=== PATIENT | female | born 1975 | race Caucasian/White ===

== ENCOUNTER 2020-03-18 08:14 | Outpatient (CLI) | payer BC, SELFPAY ==
--- NOTE | ~2020-03-18 | XR_ITS ---
EXAMINATION: XR ankle RT min 3V, XR foot RT min 3V EXAM DATE: 03/18/2020 08:36 INDICATION: Pain of the right foot, ankle. 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 Ini tial encounter. TECHNIQUE: Right foot dorsoplantar, lateral and oblique projections obtained and reviewed. Right ank le frontal, lateral and oblique projections obtained and reviewed. There is no prior study for ani pantoja. FINDINGS: Right metatarsal bones unremarkable. The right ankle mortise appears intact. 1st toe is u nremarkable. There are no acute fractures or dislocations identified. There is no subcutaneous gas. The soft tissue is unremarkable. There are no radiopaque foreign bodies. IMPRESSION: 1. Unremarkable right foot, ankle exam. Reviewed, dictated and finalized at location A. IMPRESSION: 1. Unremarkable right foot, ankle exam.
== END 2020-03-18 08:15 ==
PROVIDERS: PCP Physician Assistant; Visit Provider Physician Assistant
DX: M79.671 Pain in right foot (principal)
CPT/HCPCS: 73610; 73630

== ENCOUNTER 2020-06-29 06:48 | Outpatient (CLI) | payer BC, SELFPAY ==
--- NOTE | ~2020-06-29 | MR_ITS ---
EXAMINATION: MR ankle RT wo con DATE: 06/29/2020 07:42 INDICATION: Posterior right ankle pain TECHNIQUE: Magnetic resonance imaging (MRI) of the right ankle was performed without intravenous cont rast. Sequences included sagittal, coronal, and axial proton-density weighted fast spin echo without and with fat saturation. COMPARISON: None. FINDINGS: Medial ankle ligaments: Deep and superficial deltoid ligaments as well as the spring ligament are normal. Lateral ankle ligaments: The anterior and posterior inferior tibiofibular ligaments are normal. The anterior talofibular, calc aneofibular and posterior talofibular ligaments are normal. Tendons: Achilles tendon is normal. The peroneus longus and brevis tendons are normal. The tibialis anterior a nd extensor hallucis longus and extensor digitorum longus tendons are normal. The tibialis posterior, flexor digitorum longus and flexor hallucis longus tendons are normal. Plantar fascia: Plantar aponeurosis is normal. Bones/other: Bone alignment is normal. Normal marrow signal throughout with no fracture or pathologic marrow repla cing process. Joint spaces are normal with no erosions or joint effusions. Negligible increased fluid signal along the medial posterior margin of the distalmost Achilles tendon which is in relatively cl ose proximity to the marker indicating the site of maximal pain potentially related to minimal Achill es (subcutaneous calcaneal) bursitis. IMPRESSION: 1. Possible minimal Achilles (subcutaneous calcaneal) bursitis. Otherwise unremarkable MRI of the rig ht ankle and hindfoot with no other etiology identified for reported posterior ankle pain. Reviewed, dictated and finalized at location A. CLEANING HAND IMPRESSION: 1. Possible minimal Achilles (subcutaneous calcaneal) bursitis. Otherwise unrem arkable MRI of the right ankle and hindfoot with no other etiology identified f or reported posterior ankle pain.
== END 2020-06-29 06:49 ==
PROVIDERS: Visit Provider Podiatrist Foot & Ankle Surgery
DX: M25.571 Pain in right ankle and joints of right foot (principal); I10 Essential (primary) hypertension
CPT/HCPCS: 73721

== ENCOUNTER 2021-04-18 16:42 | Outpatient (CLI) | payer BC, SELFPAY ==
--- NOTE | ~2021-04-18 | US_ITS ---
EXAMINATION: US venous doppler [facility] DATE: 04/18/2021 17:15 INDICATION: Left calf pain. TECHNIQUE: Grayscale ultrasound images without and with compression and Doppler ultrasound images of the left lower extremity veins were obtained. COMPARISON: Ultrasound 02/22/2017 FINDINGS: The visualized portions of left common femoral vein, profunda (deep) femoral vein, femoral vein, popl iteal vein, peroneal veins, posterior tibial veins, and greater saphenous vein outflow are patent. IMPRESSION: 1. No deep venous thrombosis. Reviewed, dictated and finalized at location A.
== END 2021-04-18 16:43 | disposition home or self-care (01) ==
PROVIDERS: Visit Provider Podiatrist Foot & Ankle Surgery
DX: M79.89 Other specified soft tissue disorders (principal)
CPT/HCPCS: 93971

== ENCOUNTER 2021-07-20 10:29 | Emergency (ER) | payer BC, SELFPAY ==
--- NOTE | ~2021-07-20 | US_ITS ---
EXAMINATION: US venous doppler [facility] DATE: 07/20/2021 11:53 INDICATION: Left lower limb pain TECHNIQUE: Grayscale ultrasound images without and with compression and Doppler ultrasound images of the left lower extremity veins were obtained. COMPARISON: None. FINDINGS: The visualized portions of left common femoral vein, profunda (deep) femoral vein, femoral vein, popl iteal vein, peroneal veins, posterior tibial veins, gastrocnemius vein and greater saphenous vein out flow are patent. IMPRESSION: 1. No deep venous thrombosis in the left lower limb. Reviewed, dictated and finalized at location A. 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
[2021-07-20 10:36] VITALS: BP 122/76; PULSE 86; RESP 18; O2SAT 99
[2021-07-20 11:49] VITALS: TEMP 36.4
--- NOTE | 2021-07-20 11:53 | ECG_ITS ---
Measurements Intervals Ernest Rate: 67 P: 63 MN: 149 QRS: 43 QRSD: 87 T: 31 QT: 386 QTc: 409 Interpretive Statements SINUS RHYTHM BASELINE ARTIFACT- I, II, III, AVR, AVL, AVF BORDERLINE ECG Electronically Signed On 07-20-2021 13:10:06 [employer] by Nasim Booker D.O.
--- NOTE | 2021-07-20 12:09 | ED.EXTPRO ---
HPI - Extremity Problem General Chief complaint: Extremity Problem,Nontraumatic Stated complaint: heart racing Time Seen by Provider: 07/20/21 11:18 Source: patient and RN notes reviewed Mode of arrival: ambulatory Limitations: no limitations History of Present Illness HPI Narrative: Patient presents with pain in the medial side of left thigh, radiating down to the medial side of the left lower extremity started since she had venous ablation of the lower extremity May 2021 got worse over the last few days. Patient denies any trauma. Also denies any fever, chills, nausea, vomiting, shortness of breath or chest pain. Review of Systems Review of Systems: CONSTITUTIONAL: Denies fever, chills, or sweats. EYES: Denies visual changes, redness, or discharge. ENT: Denies rhinorrhea, congestion, sore throat, or otalgia. CARDIOVASCULAR: Denies chest pain, palpitations, or edema. RESPIRATORY: Denies cough or dyspnea. GASTROINTESTINAL: Denies abdominal pain, nausea, vomiting, or diarrhea. GENITOURINARY: Denies dysuria or hematuria. SKIN: Denies rash or itching. MUSCULOSKELETAL: Denies back pain, joint pain, or myalgia. NEUROLOGIC: Denies headache, numbness, or weakness. PSYCHIATRIC: Denies anxiety or depression. PMFSH Family History Family History Mother Hypertension Social History Social History Second hand tobacco smoke exposure: Yes Smoking end date: 08/19/09 Alcohol intake: current Exam Narrative: General appearance: Well-developed, well-nourished Skin: Normal color Head: Normocephalic, nontraumatic Eyes: Clear conjunctiva ENT: Oropharynx normal, ears normal, nose normal Neck: Supple, nontender Chest and respiratory: Airway patent, no respiratory distress, no accessory muscle use Heart: Regular rate/rhythm Abdomen: Soft, nontender, no organomegaly, quiet bowel sounds Vascular: Normal peripheral pulses, normal capillary refill. Musculoskeletal: Mild diffuse tenderness left thigh medially, no bruises, no swelling, no rash, at the same line of the venous ablation. No evelyn-like feeling under the skin. 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 Venous Doppler ordered. Imaging Data Radiologist's impression: Impressions Venous Doppler Study 07/20/21 12:00 IMPRESSION: 1. No deep venous thrombosis in the left lower limb. ECG Data EKG #1: Attestation EKG: I personally reviewed and interpreted this ECG as follows: ECG completion date: 07/20/21 ECG completion time: 12:31 Interpretation: Normal sinus rhythm at 67 bpm, normal EKG Critical Care Time Critical Care Time Critical Care Time: No Discharge Plan Discharge Clinical Impression: Left leg pain Patient Disposition: Home, Self-Care Condition: Stable Instructions: Antibiotic Form, Leg Pain (ED) Additional Instructions: Return if symptoms are worsening , call your fa
[2021-07-20 12:59] VITALS: BP 107/69; PULSE 63; RESP 18; TEMP 36.6; O2SAT 100
== END 2021-07-20 13:01 | disposition home or self-care (01) ==
PROVIDERS: Emergency Provider Emergency Medicine; PCP Physician Assistant
DX: M79.605 Pain in left leg (principal); Z77.22 Contact with and (suspected) exposure to environmental tobacco smoke (acute) (chronic)
CPT/HCPCS: 93005; 93971; 99284

== ENCOUNTER → 2024-09-07 11:24 | Outpatient (CLI) | payer OTHER, SELFPAY ==
--- NOTE | ~2024-09-07 | XR_ITS ---
EXAMINATION: XR chest 2V 09/07/2024 11:46 INDICATION: Cough for 6 months PROCEDURE: 2 view chest COMPARISON: 12/03/2017 FINDINGS: The lungs are clear. There are densely calcified mediastinal lymph nodes, consistent with c hronic granulomatous disease. The cardiomediastinal silhouette is within normal limits. There are no pleural effusions. There is no pneumothorax suspected. IMPRESSION: 1: NO ACUTE CARDIOPULMONARY DISEASE. Reviewed, dictated and finalized at location A. 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
== END ==
LOC: EXPCRAD 11:29
PROVIDERS: PCP Physician Assistant; Visit Provider Physician Assistant
DX: R05.9 Cough, unspecified (principal)
CPT/HCPCS: 71046

== ENCOUNTER → 2025-02-23 08:50 | Outpatient (CLI) | payer OTHER, SELFPAY ==
--- NOTE | ~2025-02-23 | XR_ITS ---
Cervical Spine: AP, lateral, oblique, open-mouth views Clinical History: Pain Findings: The normal lordotic curve is maintained. The vertebral bodies and posterior elements appea r intact. The intervertebral disc spaces are well maintained. Pre-vertebral soft tissues are unremar kable. Large calcified lymph nodes are present along the right paratracheal stripe region. Impression: No significant abnormality is seen. Reviewed, dictated and finalized at location . Impression: No significant abnormality is seen.
--- OUTSIDE RECORDS SUMMARY | 2025-02-23 08:58 | XMS_ITS | Clinical Summary ---
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 90 capsule 1 11/02/[address] (PROTONIX) 40 mg EC tabletIndicatio ns:Treatment of Non-Bleeding Gastric Disorder Take 1 tablet (40 mg total) by mouth 2 (two) times a day 180 tablet 1 11/09/2024 Active Active Problems Problem Noted Date Diagnosed Date Polyp of ascending colon 12/16/2024 Dyspepsia 12/16/2024 Upper abdominal pain 11/09/2024 Assessment & Plan (11/10/2024 1:05 AM CDT): Due to the upper abdominal pain and bloating recommend ultrasound of the right upper quadrant. Rule out gallbladder disease as a coexisting factor. Lower abdominal pain 11/09/2024 Assessment & Plan (11/10/2024 1:06 AM CDT): The patient has lower abdominal pain and bloating. This could be related to irritable bowel syndrome or due to other causes. Patient is due for screening colonoscopy. Will fully evaluate by colonoscopy and discuss other measures if needed. We will then follow up in the office. Bloating 11/09/2024 Assessment & Plan (11/10/2024 1:07 AM CDT): Consider irritable bowel syndrome, constipation, small intestinal bacterial overgrowth. Check endoscopy colonoscopy and ultrasound. If no change then evaluate further with possible CT. The May-Thurner syndrome should be unrelated. Subacute cough 09/20/2024 Assessment & Plan (09/20/2024 2:49 PM MERCERIZING RANGE CONTROLLER): This is a significant, separately identifiable problem that was evaluated and managed on the same day as the wellness exam Persistent subacute cough. She has noted it about the last 6 months. Has been on antibiotics steroids and Tessalon Perles and albuterol Check a chest x-ray to determine if additional follow up as needed. Encouraged to take daily omeprazole see if there is any reflux related cough. As she is having some breakthrough symptoms she was only on the Pepcid Situational stress 09/20/2024 Assessment & Plan (11/14/2024 9:41 PM CDT): Persistent situational stress. Patient currently on venlafaxine 75 and has tolerated well. Still room for improvement. Increase to 150 mg daily. May take 2/75 until they are exhausted and will send a new prescription for Effexor XR 150. Follow up in 8 weeks to reassess or sooner for any other problems or concerns Assessment & Plan (09/20/2024 2:49 PM MERCERIZING RANGE CONTROLLER): This is a significant, separately identifiable problem that was evaluated and managed on the same day as the wellness exam Persistent symptoms. Start venlafaxine XR 37.5 daily times a week then increase to 2 for 75 mg daily. Follow up in 4-6 weeks to reassess or sooner for any other problems or concerns Arthralgia 12/16/2023 Assessment & Plan (12/16/2023 12:40 AM CDT): Check labs History of abnormal cervical Pap smear Overview (10/26/2024): 04/2024 - Pap normal, HPV neg 10/2023 - [place] - JUAN I on cervical Bx, ECC benign 2023 - ASCUS, +HPV Symptomatic PVCs 04/19/2023 Assessment & Plan (04/19/2023 11:50 PM CDT): Patient has PVCs and they are symptomatic. She admits to feeling had a fluttery sensation when they occur back to back. She denies syncopal episodes. Recommend referral to Cardiology for further evaluation and probable event monitor to determine the burden of the arrhythmia and see if they have any recommendations. Advised if she would have chest pain shortness a breath or syncopal presyncopal episode she is mainly go the ER. She is in agreement with the plan Irregular heart beat 04/19/2023 Assessment & Plan (04/19/2023 11:51 PM CDT): Irregular heartbeat noted on exam. Patient has admits to being symptomatic when I identify an irregular heartbeat from what I was hearing. EKG in the office did confirm PVC. They were not as frequent as when I initially her them but was able to catch 1. Dysuria 04/19/2023 Assessment & Plan (04/19/2023 11:51 PM CDT): Pt presents with dysuria. Urine dip completed. Send urine culture. Antibiotic to pharmacy. Reviewed bladder care. Cigarette smoker 11/12/2022 Assessment & Plan (04/19/2023 11:45 PM CDT): Encouraged smoking cessation. Discussed 3 minutes. Reviewed options for assistance with cessation. Reviewed chcf sequela associated with smoking. Pt declines assistance at this time but may contact the office at anytime for further help as they desire. Assessment & Plan (12/02/2022 3:45 PM CDT): Encouraged smoking cessation. Discussed 3 minutes. Reviewed options for assistance with cessation. Reviewed chcf sequela associated with smoking. Pt declines assistance at this time but may contact the office at anytime for further help as they desire. Colon cancer screening 12/10/2021 Assessment & Plan (11/10/2024 1:06 AM CDT): Plan on screening colonoscopy. Assessment & Plan (09/20/2024 2:47 PM MERCERIZING RANGE CONTROLLER): Patient is due for her 1st colon cancer screening. Discussed options. Prefers colonoscopy. Order placed Assessment & Plan (12/02/2022 3:44 PM CDT): Patient due for colon cancer screening. Reviewed screening options and prefers Cologuard. Order placed Assessment & Plan (12/10/2021 5:31 PM CDT): Discussed colon cancer screening options. Prefers Cologuard. Order placed May-Thurner syndrome 12/10/2021 Overview (12/10/2021): S/P LE stent 2021. Assessment & Plan (09/20/2024 2:45 PM MERCERIZING RANGE CONTROLLER): Continue per vascular at [facility]. She is due for monitoring. Assessment & Plan (12/16/2023 12:39 AM CDT): Patient has May-Thurner syndrome. This will result in swelling in that lower extremity. She has a compression stocking that is toe to groin and encouraged to use on a regular basis during the day and off at night. She has had a cardiac workup and so the aspect of pumping through the rest of the body seems to be intact. Will continue to monitor closely if symptoms change she is to follow up immediately Assessment & Plan (12/02/2022 3:45 PM CDT): Continue per [facility] or vascular group. States has annual imaging. She states she is past due in plans on calling them promptly Advised her abdominal fullness may be related to her May-Thurner and if she is due for imaging she needs to follow-up with them and let them know she is experiencing these symptoms. Assessment & Plan (12/10/2021 5:31 PM CDT): Patient diagnosed with May-Thurner syndrome. She had a stent placed in her lower extremities in 2021. She is doing well and her lower extremity edema has improved. She is currently on Eliquis 2.5 mg managed by vascular. She is not having any active signs or symptoms of bleeding. High risk medication use 12/10/2021 Overview (12/10/2021): Patient is on Eliquis managed by vascular Assessment & Plan (12/10/2021 5:32 PM CDT): Patient is on Eliquis. It is managed by vascular. No active signs of bleeding Right foot pain 03/18/2020 Assessment & Plan (03/18/2020 4:54 PM CDT): This is a significant, separately identifiable problem that was evaluated and managed on the same day as the wellness exam Check xrays of the foot and ankle. Encouraged ICE/elevation and a post-op shoe until xrays are available as it is the weekend so will not probably have until Saturday. Breast cancer screening by mammogram 03/18/2020 Assessment & Plan (09/20/2024 2:46 PM MERCERIZING RANGE CONTROLLER): Mammogram order provided Assessment & Plan (12/02/2022 3:43 PM CDT): Mammogram order provided Assessment & Plan (12/10/2021 5:30 PM CDT): Mammogram order in hand. Assessment & Plan (03/18/2020 4:58 PM CDT): Mammogram order provided BMI 36.0-36.9,adult 02/03/2019 Assessment & Plan (02/23/2025 7:06 AM CDT): Discussed the patient's BMI. The BMI is above average. BMI management plan is completed. BMI Follow-up includes: nutrition counseling, exercise counseling and education provided. Assessment & Plan (03/18/2020 7:21 AM CDT): Obesity is unchanged. Discussed the patient's BMI. The BMI is above average. BMI management plan is completed. BMI Follow-up includes: nutrition counseling, exercise counseling and education provided. Assessment & Plan (10/01/2019 3:08 PM MERCERIZING RANGE CONTROLLER): Obesity is unchanged. Discussed the patient's BMI. The BMI is above average. BMI management plan is completed. BMI Follow-up includes: nutrition counseling, exercise counseling and education provided. Assessment & Plan (02/03/2019 2:28 PM CDT): Obesity is unchanged. Discussed the patient's BMI. The BMI is above average; BMI management plan is completed. General weight loss/lifestyle modification strategies discussed (elicit support from others; identify saboteurs; non-food rewards, etc). Encouraged increased exercise. Annual physical exam 02/03/2019 Assessment & Plan (09/20/2024 2:46 PM MERCERIZING RANGE CONTROLLER): Encouraged healthy lifestyle, good nutrition and exercise. Encouraged Calcium and Vitamin D and weight bearing exercise for bone health. Reviewed immunizations Reviewed age appropirate screenings. Assessment & Plan (12/02/2022 3:43 PM CDT): Encouraged healthy lifestyle, good nutrition and exercise. Encouraged Calcium and Vitamin D and weight bearing exercise for bone health. Reviewed immunizations Reviewed age appropirate screenings. Assessment & Plan (12/10/2021 5:30 PM CDT): Encouraged healthy lifestyle, good nutrition and exercise. Encouraged Calcium and Vitamin D and weight bearing exercise for bone health. Reviewed immunizations Reviewed age appropirate screenings. Assessment & Plan (03/18/2020 4:58 PM CDT): Encouraged healthy lifestyle, good nutrition and exercise. Encouraged Calcium and Vitamin D and weight bearing exercise for bone health. Reviewed immunizations Reviewed age appropirate screenings. Assessment & Plan (02/03/2019 3:08 PM CDT): Encouraged healthy lifestyle, good nutrition and exercise. Encouraged Calcium and Vitamin D and weight bearing exercise for bone health. Reviewed immunizations Reviewed age appropirate screenings. Edema, lower extremity 02/03/2019 Assessment & Plan (03/18/2020 4:56 PM CDT): Continue diuretic prn Assessment & Plan (10/01/2019 3:06 PM MERCERIZING RANGE CONTROLLER): Continue Triamterene/HCTZ Assessment & Plan (02/03/2019 3:07 PM CDT): This is a significant, separately identifiable problem that was evaluated and managed on the same day as the wellness exam Persistent/no change. MRI was reassuring that it was only subcutaneous edema. No mass. Will continue with diuretic. Encouraged activity and weight loss. May try support hose. Gastroesophageal reflux disease without esophagi tis 12/14/2018 Assessment & Plan (11/10/2024 1:05 AM CDT): The symptoms of heartburn and cough may be related to acid reflux. Recommend upper endoscopy to further evaluate. Will change her omeprazole to pantoprazole at twice a day until the endoscopy time and we can see if that helps with any response. We also discussed anti-reflux measures. Assessment & Plan (09/20/2024 2:49 PM MERCERIZING RANGE CONTROLLER): This is a significant, separately identifiable problem that was evaluated and managed on the same day as the wellness exam Persistent symptoms of discomfort midepigastric area. Cough has also been present. Will try PPI omeprazole. Reviewed behavioral changes including bed modification and dietary changes. Follow-up in 6-8 weeks to reassess or sooner for any other problems or concerns Assessment & Plan (12/16/2023 12:38 AM CDT): Patient has symptoms that seem consistent with reflux. Reviewed behavioral changes including dietary changes raising the head of the bed etc.. She is noted a chronic cough. She has been using omeprazole 20 [id number] and seeing some improvement. Will increase to 40 mg daily. Follow-up in 4-6 weeks to reassess or sooner for any other problems or concerns. If she would notice coffee-ground emesis any blood in her emesis or dark tarry stools she is to call immediately. Assessment & Plan (12/02/2022 3:43 PM CDT): Continue PPI p.r.n. Assessment & Plan (03/18/2020 4:54 PM CDT): Stable without medication Assessment & Plan (02/03/2019 3:04 PM CDT): Stable without medication Chronic granulomatous disease 01/28/2018 Primary insomnia 11/15/2016 Assessment & Plan (09/20/2024 2:45 PM MERCERIZING RANGE CONTROLLER): Continue trazodone p.r.n. Assessment & Plan (12/16/2023 12:39 AM CDT): Continue the trazodone Assessment & Plan (12/10/2021 5:30 PM CDT): Continue trazodone Assessment & Plan (03/18/2020 4:56 PM CDT): Continue trazodone Assessment & Plan (10/01/2019 3:06 PM MERCERIZING RANGE CONTROLLER): Continue Trazodone. Change to a 150mg tab. Assessment & Plan (02/03/2019 3:08 PM CDT): Stable with trazodone Moderate single current epis ode of major depressive disorder 11/15/2016 Assessment & Plan (09/20/2024 2:45 PM MERCERIZING RANGE CONTROLLER): Persistent symptoms. Start venlafaxine XR 37.5 daily times a week then increase to 2 for 75 mg daily. Follow up in 4-6 weeks to reassess or sooner for any other problems or concerns Obesity (BMI 30.0-34.9) 11/15/2016 Assessment & Plan (02/23/2025 7:06 AM CDT): Discussed the patient's BMI. The BMI is above average. BMI management plan is completed. BMI Follow-up includes: nutrition counseling, exercise counseling and education provided. Assessment & Plan (11/02/2024 3:03 PM CDT): Discussed the patient's BMI. The BMI is above average. BMI management plan is completed. BMI Follow-up includes: nutrition counseling, exercise counseling and education provided. Assessment & Plan (09/07/2024 10:18 AM MERCERIZING RANGE CONTROLLER): Discussed the patient's BMI. The BMI is above average. BMI management plan is completed. BMI Follow-up includes: nutrition counseling, exercise counseling and education provided. Assessment & Plan (12/12/2023 12:06 PM CDT): Discussed the patient's BMI. The BMI is above average. BMI management plan is completed. BMI Follow-up includes: nutrition counseling, exercise counseling and education provided. Resolved Problems Problem Noted Date Diagnosed Date Resolved Date Chronic cough 04/19/2023 09/20/2024 Assessment & Plan (04/19/2023 11:50 PM CDT): Patient denies reflux type symptoms. She is a chronic smoker. She is having allergy type symptoms so could bump up on her allergy regimen. Will send out a few Tessalon Perles to see if this helps. Continue with the albuterol p.r.n.. If symptoms persist will need to further the workup. Burning with urination 11/13/202204/19 Assessment & Plan (12/02/2022 3:46 PM CDT): This is a significant, separately identifiable problem that was evaluated and managed on the same day as the wellness exam Pt presents with mild dysuria/abeomindal pressure Urine dip completed. Send urine culture. Antibiotic to pharmacy. Reviewed bladder care. Will go ahead and send for culture as the dip did not show UTI but with the pressure she is experiencing will definitely try to rule out culture UTI. Will follow-up pending results Fatigue 12/10/2021 09/20/2024 Assessment & Plan (12/16/2023 12:39 AM CDT): Probably multifactorial. Check labs and followup to re-evaluate Assessment & Plan (12/10/2021 5:31 PM CDT): Probably multifactorial. Check labs and followup to re-evaluate Lipid screening 12/10/2021 09/20/2024 Assessment & Plan (12/16/2023 12:39 AM CDT): Check labs Assessment & Plan (12/10/2021 5:31 PM CDT): Check labs Diabetes mellitus screening 12/10/2021 09/20/2024 Assessment & Plan (12/10/2021 5:31 PM CDT): Check labs. Obesity (BMI 30-39.9) 11/09/20212022 Assessment & Plan (11/09/2021 10:11 AM CDT): Obesity is unchanged. Discussed the patient's BMI. The BMI is above average. BMI management plan is completed. BMI Follow-up includes: nutrition counseling, exercise counseling and education provided. BMI 33.0-33.9,adult 11/09/2021 02/24/20 25 Assessment & Plan (11/02/2024 3:03 PM CDT): Discussed the patient's BMI. The BMI is above average. BMI management plan is completed. BMI Follow-up includes: nutrition counseling, exercise counseling and education provided. Assessment & Plan (09/07/2024 10:19 AM MERCERIZING RANGE CONTROLLER): Discussed the patient's BMI. The BMI is above average. BMI management plan is completed. BMI Follow-up includes: nutrition counseling, exercise counseling and education provided. Assessment & Plan (11/09/2021 10:11 AM CDT): Obesity is unchanged. Discussed the patient's BMI. The BMI is above average. BMI management plan is completed. BMI Follow-up includes: nutrition counseling, exercise counseling and education provided. Obesity, unspecified 03/18/2020 025 Assessment & Plan (09/07/2024 10:19 AM MERCERIZING RANGE CONTROLLER): Discussed the patient's BMI. The BMI is above average. BMI management plan is completed. BMI Follow-up includes: nutrition counseling, exercise counseling and education provided. Assessment & Plan (12/12/2023 12:04 PM CDT): Discussed the patient's BMI. The BMI is above average. BMI management plan is completed. BMI Follow-up includes: nutrition counseling, exercise counseling and education provided. Assessment & Plan (04/19/2023 9:40 AM CDT): BMI Follow-up includes: Discussed diet and exercising counseling. Assessment & Plan (11/12/2022 4:58 PM CDT): Discussed the patient's BMI. The BMI is above average. BMI management plan is completed. BMI Follow-up includes: nutrition counseling, exercise counseling and education provided. Upper respiratory infection with cough and congestion 10/01/2019 03/18/2020 Assessment & Plan (10/01/2019 3:05 PM MERCERIZING RANGE CONTROLLER): Encouraged supportive care. Push fluids. Rest. Reviewed that most viral conditions may have sxs that last for 10-14 days. The cough in the community has been persistent so will send a Medrol dose pac and Cheratussin. If sxs worsen or don't fully resolve, pt is to followup in the office. Obesity (BMI 30-39.9) 10/01/20192021 Assessment & Plan (03/18/2020 7:21 AM CDT): Obesity is unchanged. Discussed the patient's BMI. The BMI is above average. BMI management plan is completed. BMI Follow-up includes: nutrition counseling, exercise counseling and education provided. BMI 39.0-39.9,adult 02/03/2019 10/01/19 20 Assessment & Plan (02/03/2019 2:28 PM CDT): Obesity is unchanged. Discussed the patient's BMI. The BMI is above average; BMI management plan is completed. General weight loss/lifestyle modification strategies discussed (elicit support from others; identify saboteurs; non-food rewards, etc). Encouraged increased exercise. Need for Tdap vaccination 02/03/2019 Assessment & Plan (02/03/2019 3:08 PM CDT): Updated in office today Other fatigue 02/03/2019 03/18/2020 Assessment & Plan (02/03/2019 3:08 PM CDT): Probably multifactorial. Check labs and followup to re-evaluate Diabetes mellitus screening 02/03/2019 03/18/2020 Assessment & Plan (02/03/2019 3:08 PM CDT): Check labs Lipid screening 02/03/2019 03/18/2020 Assessment & Plan (02/03/2019 3:08 PM CDT): Check labs Breast cancer screening 02/03/201902/18 Assessment & Plan (02/03/2019 3:08 PM CDT): Mammogram order provided Recurrent major depressive d isorder, in partial remission 12/14/2018 09/20/2024 Assessment & Plan (12/02/2022 3:43 PM CDT): Managing without medications. Will continue to monitor Using trazodone HS and helping with rest Assessment & Plan (12/10/2021 5:30 PM CDT): This is a significant, separately identifiable problem that was evaluated and managed on the same day as the wellness exam Patient did well on Lexapro Wellbutrin combination in the past. She stopped that she felt like her symptoms well controlled but they have returned. She would like to restart both products at a low dose to see how she responds. Reviewed risks benefits alternatives side effects and proper use. New prescription sent to pharmacy. Patient is to follow-up in 4-6 weeks to reassess. Assessment & Plan (03/18/2020 4:56 PM CDT): Continue lexapro and wellbutrin as stable Assessment & Plan (10/01/2019 3:08 PM MERCERIZING RANGE CONTROLLER): Continue Lexapro and add Wellbutrin [id number]. Reviewed risks, benefit, alternatives, side effects and proper use. No history of seizures Assessment & Plan (02/03/2019 3:06 PM CDT): This is a significant, separately identifiable problem that was evaluated and managed on the same day as the wellness exam Improving with room for improvement. Tolerating the Lexapro. Increase to 20mg daily Anxiety 12/14/2018 09/20/2024 Assessment & Plan (12/10/2021 5:30 PM CDT): This is a significant, separately identifiable problem that was evaluated and managed on the same day as the wellness exam Patient did well on Lexapro Wellbutrin combination in the past. She stopped that she felt like her symptoms well controlled but they have returned. She would like to restart both products at a low dose to see how she responds. Reviewed risks benefits alternatives side effects and proper use. New prescription sent to pharmacy. Patient is to follow-up in 4-6 weeks to reassess. Assessment & Plan (03/18/2020 4:56 PM CDT): See depression Assessment & Plan (10/01/2019 3:09 PM MERCERIZING RANGE CONTROLLER): See depression Assessment & Plan (02/03/2019 3:06 PM CDT): See depression BMI 40.0-44.9, adult 11/15/2016 024 Assessment & Plan (04/19/2023 9:40 AM CDT): BMI Follow-up includes: Discussed diet and exercising counseling. Assessment & Plan (11/12/2022 4:58 PM CDT): Discussed the patient's BMI. The BMI is above average. BMI management plan is completed. BMI Follow-up includes: nutrition counseling, exercise counseling and education provided. Encounters Date Type Department Care Team Description 02/24/20 7:00 AM CDT Office Visit [facility] [address] [facility] [address] [place] [address] Jadyn Romero PA BMI 36.0-36.9,adult (Primary Dx); Obesity (BMI 30.0-34.9); Neck pain; Numbness and tingling of right arm 12/17/19 9:00 AM CDT - 12/17/19 10:00 AM CDT Surgery [facility] [address] [place] [phone] Darren Stringer MD ESOPHAGOGASTRODUODENOSCOPY BIOPSY 12/17/19 8:36 AM CDT Anesthesia Event [facility] [address] [place] [phone] Ivan Hernandez MD 12/17/19 8:04 AM CDT - 12/17/19 9:50 AM CDT Hospital Encounter [facility] [address] [place] [phone] Darren Stringer MD Gastroesophageal reflux disease without esophagitis; Colon cancer screening Discharge Disposition: Discharge to home or self care 12/11/19 25 Documentation [facility] at [facility] [address] [facility] [address] [place] [phone] Mabel Faria MA GI testing (Prior auths) 11/28/19 25 Telephone [facility]enter[facility] at [facility] [address] [facility] [address] [address] Sommer Hernandez from Last 3 Months Immunizations Immunization Administration Dates Next Due Influenza, Unspecified 08/19/2024(Deferr ed: Patient Refused),09/19/2022(Deferred: Patient Refused),11/09/2021(Deferred: Patient Refused),09/19/2021(Deferred: Patient Refused),10/01/2019(Deferred: Patient Refused) Tdap 02/03/2019 Surgical History Surgery Date Site/Laterality Comments TUBAL LIGATION Bilateral tubal ligation ABDOMINAL AORTA STENT 09/19/2021 - 10/16/2021 ANGIOPLASTY 2020 Medical History Medical History Date Comments Hx Other Medical tobacco use-bea t 2012 GERD (gastroesophageal reflux disease) Chronic constipation Hyperlipidemia Family History Medical History Relation Name Comments Heart disease Maternal Grandfather Kenji Cancer Maternal Grandmother Tegan Ovarian cancer Maternal Grandmother Tegan Hypertension Mother Callie Hypertension; Early Paternal Grandfather Antonio Heart attack Paternal Grandfather Antonio Breast cancer Neg Hx Colon cancer Neg Hx Uterine cancer Neg Hx Relation Name Status Comments Maternal Grandfather Kenji Maternal Grandmother Tegan Mother Callie Paternal Grandfather Antonio Social History Tobacco Use Types Packs/Day Years Used Date Smoking Tobacco: Every Day Cigarettes 0.5 10 Smokeless Tobacco: Never Tobacco Cessation:Ready to Q uit: Not Asked; Counseling Given: Not Answered Alcohol Use Standard Drinks/Week Comments Yes 0 (1 standard drink = 0.6 oz pur e alcohol) AUDIT-C Answer Date Recorded Q1: How often do you have a drink containing alcohol? Never 02/23/2025 Q2: How many drinks containi ng alcohol do you have on a typical day when you are drinking? Patient does not drink Q3: How often do you have si x or more drinks on one occasion? Never 02/23/2025 PHQ-2 Answer Date Recorded PHQ-2 Total Score (If total score is 3 or more points, staff should administer the PHQ-9) 0 02/23/2025 Personal Safety Answer Date Recorded Have you ever been in or are you currently in a harmful physical or emotional relationship or is someone making you feel afraid or unsafe? 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[place] Not on file Not on f ile Not on file Obstetrics History Para Term AB IAB SAB Ectopic Multiple Livin g Live Births 3 3 3 3 3 Date Outcome GA Total Labor Labor/2nd/3rd Weight Sex Type Anes PTL Allyssa A1 A5 Name Clin 2002 Term 40w 0d 3.26 kg (7 lb 3 oz) F Vaginal N Living Complications:None 2003 Term 40w 0d 3.345 kg (7 lb 6 oz) F Vaginal N Living Complications:None 2006 Term 40w 0d 3.827 kg (8 lb 7 oz) F Vaginal N Living Complications:None Comments H/O Abnormal pap No h/o STIs Last Filed Vital Signs Vital Sign Reading Time Taken Comments Blood Pressure 118/80 02/23/2025 7:05 AM CDT Pulse 76 02/23/2025 7:05 AM CDT Temperature 36.4 C (97.6 F) 12/16/2024 8:21 AM CDT Respiratory Rate 18 12/16/2024 9:35 AM CDT Oxygen Saturation 99% 02/23/2025 7:05 AM CDT Inhaled Oxygen Concentration - - Weight 117.8 kg (259 lb 12.8 oz) 02/23/2025 7:05 AM CDT Height 180.3 cm (5' 11) 12/16/2024 8:21 AM CDT Body Mass Index 36.23 12/16/2024 8:21 AM CDT Plan of Treatment Health Maintenance Due Date Last Done Comments Hepatitis C Screening 1975 Hepatitis B Screening 1994 Pneumococcal vaccine <65 (1 of 2 - PCV) 1995 Zoster Vaccine (1 of 2) 1995 Covid-19 Vaccine (4 - 2023-2 5 season) 2024 08/25/2021, 11/04/2020, 10/14/2020 Breast Cancer Screening-Mammogram 11/19/2024 024 Influenza Vaccine (#1) 2025 Cervical Cancer Screening 10/26/20252024, 10/26/2024, 05/18/2024, Additional history exists Regular Well Visit/Exam 18-64 10/26/2025, 09/07/2024, 10/23/2023, Additional history exists Depression Screening 02/23/2026 02/23/2025, 11/02/2024, 09/07/2024, Additional history exists DTaP/Tdap/Td Vaccine (2 - Td or Tdap) 02/03/2029 02/03/2019 Colon Cancer Screening-Colonoscopy 12/16/20292024 Procedures Procedure Name Priority Date/Time Associated Diagnosis Comments SURGICAL PATHOLOGY Routine 12/16/2024 8:44 AM CDT Gastroesophage al reflux disease without esophagitis Colon cancer screening COLON BIOPSY 12/16/2024 8:36 AM CDT Gastroesophage al reflux disease without esophagitis Colon cancer screening ESOPHAGOGASTRODUODENOSCOPY BIOPSY 12/16/2024 8:36 AM CDT Gastroesophage al reflux disease without esophagitis Colon cancer screening EGD 12/16/2024 8:29 AM CDT COLONOSCOPY 12/16/2024 8:29 AM CDT HIGH RISK HPV DNA DETECTION WITH GENOTYPING Routine 10/26/2024 12:00 PM CDT Cervical cancer screening SCREENING MAMMOGRAM [facility] Torsten Raphael FADI Schedule Routine, Read Routine (OP Routine) 11/20/2023 2:40 PM CDT Screening mammogram, encounter for from Last 3 Months or Most Recently Relevant to Health Maintenance Results * Surgical pathology (12/16/2024 8:44 AM CDT) Tissue (Duodenum, Biopsy) 12/16/2024 8:44 AM CDT Tissue specimen (specimen) (Antrum and/or Body) 12/16/2024 8:45 AM CDT Tissue specimen (specimen) (Polyp(s), colon/colorectal, esophageal, gastric) 12/16/2024 8:55 AM CDT Narrative PATHOLOGY [facility] - 12/17/2024 7:49 AM CDT [id number] [place], [place] [address] Tele: Lesly Orellana MD - Electrical Appliance Mechanic Note to Patients: This report may contain a detailed description of human tissue sent by a health care provider to the laboratory for pathologic evaluation. The content of this report is essential for diagnosis and may provide important critical findings. This information may be unfamiliar to patients to review without a medical professional present. It is advised that the patient review this report in the presence of a health care provider who can answer questions and explain the details. SURGICAL PATHOLOGY REPORT Patient Name: VERONICA PAUL Address: [address] [place] [address] Gender: F : 1975 (Age: 49) Service: Gastro Location: [facility], Hospital #: [id number] Patient Type: [facility] SAME DAY SURGERY Taken: 12/16/2024 Received 12/16/2024 Reported: 12/17/2024 Physician(s): Jose De Jesus Castro PA-C DIAGNOSIS: Duodenum, biopsy: - No histopathologic abnormality Stomach, antrum, biopsy: - No histopathologic abnormality Colon, ascending, polyps, polypectomy x2: - Tubular adenomas /12/17/2024 07:49 Examining Pathologist: Mauricio Parada MD, PhD Report Reviewed and Electronically Signed By Mauricio Parada MD, PhD SPECIMEN TYPE: A: DUODENUM B: ANTRUM C: ASCENDING COLON POLYPS CLINICAL IMPRESSION AND HISTORY: 49-year-old woman with generalized abdominal pain, dyspepsia, heartburn, nausea. The heartburn is improved on pantoprazole 40 mg b.i.d.. Also for screening for colorectal malignant neoplasm, this is the patient's first colonoscopy, incidentally has mid abdominal and right lower quadrant pain. Negative right upper quadrant ultrasound. Exam findings: Normal esophagus. Normal antrum. Biopsy to evaluate for Helicobacter pylori. Normal examined duodenum. Biopsy to evaluate for celiac disease. The examination was otherwise normal. 3 mm polyp in the ascending colon, removed with the Jumbo cold forceps. Resected and retrieved. 2 mm polyp in the ascending colon, removed with the Jumbo cold forceps. Resected and retrieved. The examination was otherwise normal on direct and retroflexion views. GROSS DESCRIPTION: The tissue is received in three containers of formalin all labeled with the patient's name VERONICA PAUL. A. The first container is additionally labeled duodenum and contains multiple tissue fragments measuring 0.6 x 0.2 x 0.1 cm in aggregate. Due to the color and size of the specimen, eosin is used. The specimen is filtered and submitted entirely in cassette A1. B. The second container is additionally labeled antrum and contains three tissue fragments measuring 0.9 x 0.2 x 0.1 cm in aggregate 0. Due to the color and size of the specimen, eosin is used. The specimen is filtered and submitted entirely in cassette B1. C. The third container is additionally labeled ascending colon polyps and contains multiple tissue fragments measuring 1.1 x 0.5 x 0.1 cm in aggregate. Due to the color and size of the specimen, eosin is used. The specimen is filtered and submitted entirely in cassette C1. DANIELLE,EDGAR MICROSCOPIC DESCRIPTION: Sections of the duodenal biopsy demonstrate unremarkable duodenal mucosa with normal villous architecture, no increased inflammation and no evidence of infection, dysplasia or malignancy. Sections of the gastric antral biopsy demonstrate unremarkable antral mucosa without acute or chronic inflammation, intestinal metaplasia, or evidence of malignancy. No Helicobacter pylori organisms identified with routine stain. Sections of the ascending colon polypectomy specimen demonstrate tubular adenomas without high-grade dysplasia Clerical Data Follows A; 90457 B; 38985 C; 37224 REPORT IMAGES AND/OR SCANNED DOCUMENTS ONLY VIEWABLE IN PDF FORMAT The immunohistochemical test(s) cited in this report, if any, was developed and its performance characteristics determined by [facility] Pathology Department. It has not been cleared or approved by the U.S. Food and Drug Administration. The FDA has determined that such clearance or approval is not necessary. This test is used for clinical purposes. It should not be regarded as investigational or for research. [facility] is certified under the Clinical Laboratory Improvement Amendments of 1988 (CLIA) as qualified to perform high complexity testing. Immunostains were performed on formalin-fixed paraffin embedded tissue using a polymer diaminobenzidine chromogen detection system. Antibodies used may include clone SP1 (rabbit monoclonal, estrogen receptor), clone 1E2 (rabbit monoclonal progesterone receptor), Ki-67 (rabbit monoclonal, 30-9), CD117 (rabbit polyclonal, c-kit), and anti-Her-2/briana (4B5) (rabbit monoclonal primary antibody). In the event that immunohistochemistry or special stains have been performed, attending physician has confirmed appropriateness of controls. Frozen section, operating room consultation, gross examination and dissection, and case sign out may have been performed in part or completely in the following laboratories: [facility], [address] [place] [id number] [place] [address], [address] [place] [id number]. us Darren Stringer MD LAB PATHOLOGY ORDERABLES Fi nal Result PATHOLOGY [facility] Laboratory Receiving [address] [place] [address] * EGD (12/16/2024 8:29 AM CDT) Anatomical Region Laterality Modality Other Narrative Procedure Note Darren Stringer MD - 12/16/2024 8:29 AM CDT ENDOSCOPY LAB Patient Name: Veronica Paul Procedure Date: 12/16/2024 8:29 AM Admit Type: Outpatient Room: [facility] 8 Date of : 1975 Instrument Name: [id number] Gender: Female Note Status: Finalized Procedure: Upper GI endoscopy Indications: Generalized abdominal pain, Dyspepsia, Heartburn, Nausea; The heartburn is improved on [id number] bid. Providers: Darren Stringer M.D. Referring MD: Jadyn Romero PA-C Medicines: Propofol per Anesthesia Complications: No immediate complications. Estimated Blood Loss: Estimated blood loss: none. Procedure: The benefits, risks, and alternatives to theprocedure and sedation were discussed and informed consentwas obtained. The scope was passed under direct vision. The Endoscope was introduced through the mouth, and advanced to the third part of duodenum. The upperGI endoscopy was accomplished without difficulty. The patient tolerated the procedure well. Findings: The examined esophagus was normal. The gastric antrum was normal. Biopsies were taken with a coldforceps for Helicobacter pylori testing. The examined duodenum was normal. Biopsies were taken with a cold forceps for histology. The exam was otherwise without abnormality. Impression: - Normal esophagus. - Normal antrum. Biopsied for H. Pylori. - Normal examined duodenum. Biopsied. - The examination was otherwise normal. Recommendation: - Await pathology results. - Return to GI office at appointment to bescheduled. Electronically signed by Darren Stringer MD Darren Stringer M.D. 12/16/2024 9:12:56 AM This document was signed electronically. Number of Addenda: 0 Note Initiated On: 12/16/2024 8:29 AM Scope In: Scope Out: us Darren Stringer MD ENDOSCOPY PROCEDURES Final Result * Colonoscopy (12/16/2024 8:29 AM CDT) Anatomical Region Laterality Modality Other Narrative Procedure Note Darren Stringer MD - 12/16/2024 8:29 AM CDT ENDOSCOPY LAB Patient Name: Veronica Paul Procedure Date: 12/16/2024 8:29 AM Admit Type: Outpatient Room: [facility] Date of : 1975 Instrument Name: [id number] Gender: Female Note Status: Finalized Procedure: Colonoscopy Indications: Screening for colorectal malignant neoplasm, Thisis the patient's first colonoscopy; Incidentally hasmid abdominal and right lower quadrant pain. NegativeRUQ ultrasound. 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 Referring MD: Jadyn Romero PA-C Medicines: Propofol per Anesthesia Complications: No immediate complications. Estimated Blood Loss: Estimated blood loss: none. Procedure: Pre-Anesthesia Assessment: - The risks and benefits of the procedure and the sedation options and risks were discussed with the patient. All questions were answered and informed consent was obtained. The benefits, risks and alternatives of theprocedure and sedation were discussed and informed consentwas obtained. All questions were answered. Please referto the signed informed consent document in the medical record. The scope was passed under direct vision.The Colonoscope was introduced through the anus and advanced to the the terminal ileum, with identification of the appendiceal orifice and IC valve. The colonoscopy was performed without difficulty. The patient tolerated the procedurewell. The quality of the bowel preparation was excellent. The quality of the bowel preparation was evaluated using the BBPS (Cohutta Bowel Preparation Scale)with scores of: Right Colon = 3 (entire mucosa seen well with no residual staining, small fragments of stoolor opaque liquid), Transverse Colon = 3 (entire mucosa seen well with no residual staining, smallfragments of stool or opaque liquid) and Left Colon = 3(entire mucosa seen well with no residual staining, small fragments of stool or opaque liquid). The totalBBPS score equals 9. The quality of the bowelpreparation was excellent. The bowel preparation used was polyethylene glycol (PEG) via split doseinstruction. AI Technology was utilized during the procedure toaid in polyp detection. Findings: A 3 mm polyp was found in the ascending colon. The polyp was sessile. The polyp was removed with a jumbo cold forceps. Resection andretrieval were complete. A 2 mm polyp was found in the ascending colon. The polyp was sessile. The polyp was removed with a jumbo cold forceps. Resection andretrieval were complete. Terminal ileum was normal. The exam was otherwise without abnormality on direct and retroflexion views. Impression: - One 3 mm polyp in the ascending colon, removedwith a jumbo cold forceps. Resected and retrieved. - One 2 mm polyp in the ascending colon, removedwith a jumbo cold forceps. Resected and retrieved. - The examination was otherwise normal on directand retroflexion views. Recommendation: - Await pathology results. - Repeat colonoscopy in 5 years for surveillance. Electronically signed by Darren Stringer MD Darren Stringer M.D. 12/16/2024 9:17:44 AM This document was signed electronically. Number of Addenda: 0 Note Initiated On: 12/16/2024 8:29 AM Scope Withdrawal Time: 0 hours 7 minutes 35 seconds Scope In: 8:50:35 AM Scope Out: 9:04:48 AM us Darren Stringer MD ENDOSCOPY PROCEDURES Final Result * High Risk HPV DNA Detection with Genotyping (Molecular component) (10/26/2024 12:00 PM CDT) HPV HR 16 Not Detected Not Detected HPV HR 18 Not Detected Not Detected [facility] HPV HR Non 16/18 Not Detected Not Detected [facility] Comment: Interpretive Data Nucleic acid amplification for detection of high-risk Human Papilloma virus (HPV) is performed by the [place] Aaron 4800 HPV test, which specifically detects high-risk HPV-16, 18, 31, 33, 35, 39, 45, 51, 52, 56, 58, 59, 66, and 68 genotypes. This assay has been approved by the [place] Food and Drug Administration for detection of HPV in cervical specimens collected by a physician using an endocervical brush/spatula or cervical broom and placed in the ThinPrep Pap Test PreservCyt collection containers. The performance characteristics of this test have been verified by the [facility]. Correlate with separately reported cytology results, as applicable. Interpretive data last revised 23 Endocervical 10/26/2024 12:0 0 PM CDT 10/26/2024 8:07 PM CDT Narrative [facility] - 10/27/2024 8:06 PM CDT Clinical history and diagnosis->screening Number of vials->1 Testing type->Screening Last menstrual period (date if known)->unknown us Olivia Rivera MD LAB BODY FLUIDS AND STOOLS ORDERABLES Final Result [facility] [address] Department [place] [address] * Screening Mammogram Bilateral W Fadi (11/20/2023 2:40 PM CDT) Anatomical Region Laterality Modality Breast Bilateral Mammography Narrative 11/21/2023 7:47 AM CDT Examination: Screening Mammogram Bilateral W Fadi: 11/20/23 Clinical: Screening mammogram, encounter for. Prior Study Comparisons: None. This is a baseline study. Findings: Bilateral No significant masses, malignant type calcifications, skin thickening, nipple retraction, or significant lymphadenopathy is noted in either breast. The CAD review showed no significant findings. The breasts have scattered areas of fibroglandular density. The patient will be notified of results by letter. Impression: BI-RADS ATLAS category (overall): 1 - Negative There is no mammographic evidence of malignancy. Routine Screening Mammogram in 1 Yr is recommended for bilateral Overall Assessment: 1 - Negative us Self Screening Mammogram IMG MAMMO PROCEDURES Fi nal Result from Last 3 Months or Most Recently Relevant to Health Maintenance Insurance [facility] Address: [place] [address] [facility] Address: [address] [place] [address] [facility] Address: [place] [address] [place] [id number] [facility] Address: [place] [address] Advance Directives For more information, please contact: [phone] * Full Code (Latest Code Status on File) Date Activated Date Inactivated Comments 12/16/2024 8:12 AM 12/16/2024 2:04 PM Care Teams Fish Grader Relationship Specialty Start Date End Date Jadyn Romero PA [address] [facility] [address] [place] [address] PCP - General Internal Medicine 12/14/18
--- OUTSIDE RECORDS SUMMARY | 2025-02-23 08:58 | XMS_ITS | Referral Summary ---
Author Organization [facility] [place] [address] [facility] Address [address] [place] [address] Care Team Providers Care Manager Application Name Role Phone Jadyn Romero Primary Care Provider +1- [phone] Encounters Date Type Department Care Team Description 02/24/20 7:00 AM CDT Office Visit [facility] Family Medicine [address] [place] [address] Jadyn Romero PA BMI 36.0-36.9,adult (Primary Dx); Obesity (BMI 30.0-34.9); Neck pain; Numbness and tingling of right arm 12/17/19 25 8:36 AM CDT Anesthesia Event [facility] [address] [place] [phone] Ivan Hernandez MD 12/17/19 25 9:00 AM CDT - 12/17/19 25 10:00 AM CDT Surgery [facility] [address] [place] [phone] Darren Stringer MD ESOPHAGOGASTRODUODENOSCOPY BIOPSY 12/17/19 25 8:04 AM CDT - 12/17/19 25 9:50 AM CDT Hospital Encounter [facility] [address] [place] [phone] Darren Stringer MD Gastroesophageal reflux disease without esophagitis; Colon cancer screening Discharge Disposition: Discharge to home or self care 12/11/19 Documentation [facility] Gastroenterology at [facility] [address] [address] Mabel Faria MA GI testing (Prior auths) 11/28/19 Telephone [facility] Gastroenterology at [facility] [address], [place] [address] Sommer Hernandez from Last 3 Months Allergies No known active allergies Medications albuterol [...] 09/20/2024 Assessment & Plan (09/20/2024 2:49 PM LIFE SKILLS SPECIALIST): This is a significant, separately identifiable problem [...] concerns Assessment & Plan (09/20/2024 2:49 PM LIFE SKILLS SPECIALIST): This is a significant, separately identifiable problem [...] - Pap normal, HPV neg 10/2023 - [place] - [facility]UAN I on cervical Bx, ECC [...] Reviewed options for assistance with cessation. Reviewed senior living sequela associated with smoking. Pt declines assistance at this time but may contact the office at anytime for further help as they desire. Assessment & Plan (12/02/2022 3:45 PM CDT): Encouraged smoking cessation. Discussed 3 minutes. Reviewed options for assistance with cessation. 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 Pt declines assistance at this time but may contact the office at anytime for further help as they desire. Colon cancer screening 12/10/2021 Assessment & Plan (11/10/2024 1:06 AM CDT): Plan on screening colonoscopy. Assessment & Plan (09/20/2024 2:47 PM LIFE SKILLS SPECIALIST): Patient is due for her 1st colon [...] 2021. Assessment & Plan (09/20/2024 2:45 PM LIFE SKILLS SPECIALIST): Continue per vascular at [facility]. She is due for monitoring. Assessment & [...] Plan (12/02/2022 3:45 PM CDT): Continue per [facility] or vascular group. States has annual [...] 03/18/2020 Assessment & Plan (09/20/2024 2:46 PM LIFE SKILLS SPECIALIST): Mammogram order provided Assessment & Plan (12/02/2022 [...] provided. Assessment & Plan (10/01/2019 3:08 PM LIFE SKILLS SPECIALIST): Obesity is unchanged. Discussed the patient's BMI. [...] 02/03/2019 Assessment & Plan (09/20/2024 2:46 PM LIFE SKILLS SPECIALIST): Encouraged healthy lifestyle, good nutrition and exercise. [...] prn Assessment & Plan (10/01/2019 3:06 PM LIFE SKILLS SPECIALIST): Continue Triamterene/HCTZ Assessment & Plan (02/03/2019 3:07 [...] measures. Assessment & Plan (09/20/2024 2:49 PM LIFE SKILLS SPECIALIST): This is a significant, separately identifiable problem [...] cough. She has been using omeprazole 20 [id number] and seeing some improvement. Will increase to [...] 11/15/2016 Assessment & Plan (09/20/2024 2:45 PM LIFE SKILLS SPECIALIST): Continue trazodone p.r.n. Assessment & Plan (12/16/2023 12:39 AM CDT): Continue the trazodone Assessment & Plan (12/10/2021 5:30 PM CDT): Continue trazodone Assessment & Plan (03/18/2020 4:56 PM CDT): Continue trazodone Assessment & Plan (10/01/2019 3:06 PM LIFE SKILLS SPECIALIST): Continue Trazodone. Change to a 150mg tab. Assessment & Plan (02/03/2019 3:08 PM CDT): Stable with trazodone Moderate single current epis ode of major depressive disorder 11/15/2016 Assessment & Plan (09/20/2024 2:45 PM LIFE SKILLS SPECIALIST): Persistent symptoms. Start venlafaxine XR 37.5 daily [...] provided. Assessment & Plan (09/07/2024 10:18 AM LIFE SKILLS SPECIALIST): Discussed the patient's BMI. The BMI is [...] provided. Assessment & Plan (09/07/2024 10:19 AM LIFE SKILLS SPECIALIST): Discussed the patient's BMI. The BMI is [...] 025 Assessment & Plan (09/07/2024 10:19 AM LIFE SKILLS SPECIALIST): Discussed the patient's BMI. The BMI is [...] 03/18/2020 Assessment & Plan (10/01/2019 3:05 PM LIFE SKILLS SPECIALIST): Encouraged supportive care. Push fluids. Rest. Reviewed [...] stable Assessment & Plan (10/01/2019 3:08 PM LIFE SKILLS SPECIALIST): Continue Lexapro and add Wellbutrin KI728mg. Reviewed risks, benefit, alternatives, side effects and [...] depression Assessment & Plan (10/01/2019 3:09 PM LIFE SKILLS SPECIALIST): See depression Assessment & Plan (02/03/2019 3:06 PM CDT): See depression BMI 40.0-44.9, adult 11/15/2016 024 Assessment & Plan (04/19/2023 9:40 AM CDT): BMI Follow-up includes: Discussed diet and exercising counseling. Assessment & Plan (11/12/2022 4:58 PM CDT): Discussed the patient's BMI. The BMI is above average. BMI management plan is completed. BMI Follow-up includes: nutrition counseling, exercise counseling and education provided. 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- [employer] Not on file Not on f ile Not on file Last Filed Vital Signs Vital Sign Reading [...] 12/16/2024 8:21 AM CDT Plan of Treatment Not on file Procedures Procedure Name Priority Date/Time Associated Diagnosis [...] PM CDT Cervical cancer screening SCREENING MAMMOGRAM BILATERA L W FADI Schedule Routine, Read Routine (OP Routine) [...] gastric) 12/16/2024 8:55 AM CDT Narrative PATHOLOGY [facility] - 12/17/2024 7:49 AM CDT [address] [address] Tele: Lesly Orellana MD - Outpatient Services Director Note to Patients: This report may contain [...] PATHOLOGY REPORT Patient Name: VERONICA PAUL Address: [address] [place] [address] Gender: F : 1975 (Age: 49) Service: Gastro Location: [facility], Hospital #: [id number] Patient Type: [facility] SAME DAY SURGERY Taken: 12/16/2024 Received 12/16/2024 [...] filtered and submitted entirely in cassette C1. LKB,CU MICROSCOPIC DESCRIPTION: Sections of the duodenal biopsy [...] without high-grade dysplasia Clerical Data Follows A; 16391 B; 80113 C; 28270 REPORT IMAGES AND/OR SCANNED DOCUMENTS ONLY VIEWABLE IN PDF FORMAT The immunohistochemical test(s) cited in this report, if any, was developed and its performance characteristics determined by [facility] Pathology Department. It has not been cleared or approved by the U.S. Food and Drug Administration. The FDA has determined that such clearance or approval is not necessary. This test is used for clinical purposes. It should not be regarded as investigational or for research. [facility] Laboratory is certified under the Clinical Laboratory [...] part or completely in the following laboratories: [facility], [facility] [place], [place] [address] [place] [address], [address] [place] [address]. [place] Darren Stringer MD LAB PATHOLOGY ORDERABLES Fi nal Result PATHOLOGY [facility] Laboratory Receiving [address] [place] [address] * EGD (12/16/2024 8:29 AM CDT) Anatomical Region Laterality Modality Other Narrative Procedure Note Darren Stringer MD - 12/16/2024 8:29 AM CDT ENDOSCOPY LAB Patient Name: Veronica Paul Procedure Date: 12/16/2024 8:29 AM Admit Type: Outpatient Room: [facility] Date of : 1975 Instrument Name: [id number] Gender: Female Note Status: Finalized Procedure: Upper GI endoscopy Indications: Generalized abdominal pain, Dyspepsia, Heartburn, Nausea; The heartburn is improved on [id number] bid. Providers: Darren Stringer M.D. Referring MD: [...] 12/16/2024 8:29 AM Admit Type: Outpatient Room: [facility] 8 Date of : 1975 Instrument Name: [id number] [...] bowel preparation was evaluated using the BBPS ([place] Bowel Preparation Scale)with scores of: Right Colon [...] HPV HR 18 Not Detected Not Detected [facility] HPV HR Non 16/18 Not Detected Not Detected [facility] Comment: Interpretive Data Nucleic acid amplification [...] this test have been verified by the [facility]. Correlate with separately reported cytology results, as applicable. Interpretive data last revised 23 Endocervical 10/26/2024 12:0 0 PM CDT 10/26/2024 8:07 PM CDT Narrative [facility] - 10/27/2024 8:06 PM CDT Clinical history and diagnosis->screening Number of vials->1 Testing type->Screening Last menstrual period (date if known)->unknown Olivia Rivera MD LAB BODY FLUIDS AND STOOLS ORDERABLES Final Result [facility] [address] Department [place] [address] * Screening Mammogram Bilateral W [...] Most Recently Relevant to Health Maintenance Insurance [employer] [facility] HMO/PPO Address: [place] [address] [facility] CHOICE PLUS [facility] H[facility]/PPO Address[id number] [place] [address] [facility] CHOICE PLUS [facility] HMO/PPO Address: [place] [address] [facility] CHOICE PLUS [facility] HMO/PPO Address: [place] [address] Advance Directives For more information, please contact: [phone] * Full Code (Latest Code Status on File) Date Activated Date Inactivated Comments 12/16/2024 8:12 AM 12/16/2024 2:04 PM Care Teams Manager Application Relationship Specialty Start Date End Date Jadyn Romero PA [address] [place] [id number] PCP - General Internal Medicine 12/14/18
--- OUTSIDE RECORDS SUMMARY | 2025-02-23 08:58 | XMS_ITS | Encounter Summary ---
Author Organization [facility] Address [address] [place] [address] Care Team Providers Care Alteration Inspector Name Role Phone Jadyn Romeor PA-C Primary Care Provider +1 -[phone] Reason for Visit * Reason Comments Refill Request Encounter Details Date Type Department Care Team (Late st Contact Info) Description 11/14/2021 Refill [facility]VENT[facility]AL [address] [place] [address] Frandy Da Silva MD [address] [place] [address] [phone] Refill Request Social History Tobacco Use Types Packs/Day Years Used Date Smoking Tobacco: Every Day Cigarettes Smokeless Tobacco: Never Alcohol Use Standard Drinks/Week Comments Yes 0 (1 standard drink = 0.6 oz pur e alcohol) Socially Comments No Sex and Gender Information Value Date Recorded Sex Assigned at Female 10/29/2023 9:48 AM CDT 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
--- OUTSIDE RECORDS SUMMARY | 2025-02-23 08:58 | XMS_ITS | Encounter Summary ---
Author Organization [facility] Care Team Providers Care Carving Machine Operator Name Role Phone Jadyn Romero Primary Care Provider +1- [phone] Encounter Details Date Type Department Care Team (Latest Contact Info) Description 02/03/2015 Orders Only [facility] ProviderJaz MD [address] [place] [id number] Social History Tobacco Use Types Packs/Day Years Used Date Smoking Tobacco: Never Alcohol Use Standard Drinks/Week Comments Yes 0 (1 standard drink = 0.6 oz pur e alcohol) Comments Unknown Sex and Gender Information Value Date Recorded Sex Assigned at Not on file 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 us Historical Provider Final Res ult documented in this encounter Visit Diagnoses Not on filedocumented in this encounter Additional Health Concerns Infection Onset Date Last Indicated Resolved Time COVID: Suspected 05/28/2023 05/28/2023 05/28/2023 2:24 PM CDT COVID: Suspected 04/13/2024 04/13/2024 04/13/2024 3:19 PM CDT documented as of this encounter Care Teams Carving Machine Operator Relationship Specialty Start Date End Date Jadyn Romero PA [address] [facility] [address] [place] [address] PCP - General Internal Medicine 12/14/18 documented as of this encounter
--- OUTSIDE RECORDS SUMMARY | 2025-02-23 08:58 | XMS_ITS | Clinical Summary ---
Author Organization [facility] Address [address] [place] [address] Care Team Providers Care Manager Sterile Processing Name Role Phone Jadyn Romero PA-C Primary Care Provider [phone] [phone] [facility],non-owned Affiliates and Associated Physician Practices is amultiple site organization consisting of ambulatory clinics and hospital sitesin [place], [place], [place] and [place]. This disclosure is being madepursuant to the Care Everywhere program and may not contain all information available regarding this patient. Last updated 18.[facility] Allergies No known active allergies Medications * Be aware that medications may not be up to date on this document. Alwaysverify current medications with the patient. traZODone (DESYREL) 150 MG tablet 02/24/2021 Active albuterol HFA (PROVENTIL;VENT MAGDA;PROAIR) 108 (90 Base) MCG/ACT inhaler Inhale 2 (two) puffs by mouth 03/18/2020 Active venlafaxine XR 24hr (Effexor XR) 150 MG capsule Take 1 (one) capsule by mouth once daily 11/02/2024 Active pantoprazole EC (Protonix) 40 MG tablet Take 1 (one) tablet by mouth 2 times daily 11/09/2024 Active Active Problems Problem Noted Date Diagnosed Date Screening due 08/29/2021 Overview (08/29/2021): Assessing for prior to radiation and sedation exposure Obesity, unspecified 03/18/2020 Anxiety 03/18/2020 Insomnia 03/18/2020 Edema of leg 03/18/2020 Gastroesophageal reflux disease 03/18/2020 Encounters Date Type Department Care Team Description 01/15/2025 6:50 AM CDT - 01/15/2025 9:45 AM CDT Hospital Encounter [facility] [address] [id number] Frandy Da Silva MD [facility] Discharge Disposition: Home or Self Care 12/11/2024 Travel 11/26/2024 Travel from Last 3 Months Social History Tobacco Use Types Packs/Day Years Used Date Smoking Tobacco: Every Day Cigarettes 0.3 10 Smokeless Tobacco: Never Tobacco Cessation:Ready to Q uit: No; Counseling Given: Not Answered Alcohol Use Standard Drinks/Week Comments Yes 0 (1 standard drink = 0.6 oz pur e alcohol) Socially Comments No Sex and Gender Information Value Date Recorded Sex Assigned at Female 10/29/2023 9:48 AM CDT 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 Gender Identity Female 10/29/2023 9:48 AM CDT Sexual Orientation Straight 10/29/2023 9: 48 AM CDT Last Filed Vital Signs Vital Sign Reading Time Taken Comments Blood Pressure 114/67 01/15/2025 9:30 AM CDT Pulse 64 01/15/2025 9:30 AM CDT Temperature 36.2 C (97.2 F) 01/15/2025 7:10 AM CDT Respiratory Rate 16 01/15/2025 9:30 AM CDT Oxygen Saturation 97% 01/15/2025 9:30 AM CDT Inhaled Oxygen Concentration - - Weight 106.6 kg (235 lb) 01/15/2025 7:10 AM CDT Height 180.3 cm (5' 11) 01/15/2025 7:10 AM CDT Body Mass Index 32.78 01/15/2025 7:10 AM CDT Plan of Treatment Health Maintenance Due Date Last Done Comments COLOGUARD (AGES 45-75) - COL ON CA SCREENING 1976 CT COLONOGRAPHY - COLON CA SCREENING 1976 FIT - COLON CA SCREENING 1976 FLEX SIG - COLON CA SCREENING 1976 LIPID TESTING 1976 HIV SCREENING 1991 HEPATITIS C SCREENING 08/12/1994 DTAP/TDAP/TD VACCINES (1 - Tdap) 1995 HEPATITIS B VACCINE (1 of 3 - 19+ 3-dose series) 1995 PNEUMOCOCCAL VACCINE (1 of 2 - PCV) 1995 COVID-19 VACCINE (4 - 2023-2 5 season) 2024 08/25/2021, 11/04/2020, 10/14/2020 DEPRESSION SCREENING 08/19/2024 INFLUENZA VACCINE (#1) 2025 MAMMOGRAM 11/19/2025 11/20/2023, 11/20/2023 ZOSTER VACCINE (1 of 2) 2026 PAP SMEAR 10/27/2027 10/26/2024 COLON MONITORING 12/16/2034 12/16/2024 COLONOSCOPY - COLON CA SCREENING 12/16/2034 12/16/2024 Colorectal Cancer Screening 12/16/2034 HIB VACCINE Aged Out No longer eligi ble based on patient's age to complete this topic HPV VACCINE Aged Out No longer eligi ble based on patient's age to complete this topic MENINGOCOCCAL (Group B) VACCINE SHARED DECISION-MAKING Aged Out No longer eligible based on patient's age to complete this topic MENINGOCOCCAL GROUPS A/C/Y/W VACCINE Aged Out No longer eligible b ased on patient's age to complete this topic Procedures Procedure Name Priority Date/Time Associated Diagnosis Comments IR VENOGRAM LEFT LEG Routine 01/15/2025 8:36 AM CDT May-Thurner syndrome HCG BLOOD QUALITATIVE STAT 01/15/2025 7:23 AM CDT Edema of leg May-Thurner syndrome PT-INR STAT 01/15/2025 7:23 AM CDT Edema of leg May-Thurner syndrome CBC W AUTO DIFFERENTIAL STAT 01/15/2025 7:23 AM CDT Edema of leg BASIC METABOLIC PANEL (CALCIUM TOTAL) STAT 01/15/2025 7:23 AM CDT Edema of leg May-Thurner syndrome from Last 3 Months Results * IR Venogram Left Leg (01/15/2025 8:36 AM CDT) Anatomical Region Laterality Modality Lower Extremity X-Ray Angiograph y 01/15/2025 8:53 AM CDT Impressions 01/15/2025 9:02 AM CDT Impression: Left ilio cavogram with brisk antegrade flow without evidence of in-stent stenosis. I, Dr. Yuliet Muro, was present and performed/supervised the entire procedure. Moderate sedation on this adult patient was ordered by me, administered intravenously in my presence, and monitored by the procedure nurse as an independent trained observer who was present throughout the procedure. The following parameters were monitored: oxygen saturation, heart rate, blood pressure, and response to care. Intra-service sedation start time was 08:24 and end time was 08:36 during which I was present. Total physician intra-service sedation time was 12 minutes. For details on pre moderate sedation and post moderate sedation patient evaluation, please review the evaluation forms in [facility]. For details on monitored clinical parameters during the intra-service sedation time, please review the procedure nurse documentation in [facility]. 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 Operators: 1.Dr. Muro, Attending Physician Anesthesia: 1.Local anesthesia - 10 mL of 1% lidocaine 2.Intravenous conscious sedation - Versed 0.5 mg and Fentanyl 25 mcg Procedure: 1.Ultrasound-guided access of the left common femoral vein. 2.Left ilio cavagram. Fluoroscopic time: 0.58 minutes Contrast: 20 mL of Isovue 370 Procedure in detail: The procedure, risks, and possible complications were explained to the patient in detail, and informed consent was obtained. The patient was placed supine on the angiography table. The left groin was prepped and draped in the usual sterile manner. Limited ultrasound of the left groin demonstrated a patent and compressible left common femoral vein. A caba scale image was documented. After instillation of 1% lidocaine for local anesthesia, a small incision was made in the groin at the entry site. Under real time ultrasound guidance, using a micropuncture needle, the left common femoral vein was accessed. The needle entry was documented on caba scale ultrasound imaging. Catheterization of the left external iliac vein was achieved with the micropuncture sheath. Left ilio cavagram was performed, demonstrating brisk antegrade flow through the left external and common iliac veins and into the inferior vena cava without evidence of in-stent stenosis. Reflux was noted into collateral branches, likely due to volume of contrast injection. The sheath was removed, and hemostasis was achieved with manual compression. Sterile dressing was applied. The patient tolerated the procedure well and was transferred to the holding area in stable condition. There were no immediate complications associated with the procedure. Procedure Note Yuliet Muro, DO - 01/15/2025 History: 49 year old female status post stenting for May Thurnersyndrome, presenting for venogram. Operators: 1.Dr. Muro, Attending Physician Anesthesia: 1.Local anesthesia - 10 mL of 1% lidocaine 2.Intravenous conscious sedation - Versed 0.5 mg and Fentanyl 25 mcg Procedure: 1.Ultrasound-guided access of the left common femoral vein. 2.Left ilio cavagram. Fluoroscopic time: 0.58 minutes Contrast: 20 mL of Isovue 370 Procedure in detail: The procedure, risks, and possible complications were explained to the patient in detail, and informed consent was obtained. The patient was placed supine on the angiography table. The left groin was prepped and draped in the usual sterile manner.Limited ultrasound of the left groin demonstrated a patent and compressible left common femoral vein. A caba scale image was documented. Afterinstillation of 1% lidocaine for local anesthesia, a small incision was made in the groin at the entry site. Under real time ultrasound guidance, using a micropuncture needle, the left common femoral vein was accessed. Theneedle entry was documented on caba scale ultrasound imaging. Catheterization of the left external iliac vein was achieved with the micropuncture sheath. Left ilio cavagram was performed, demonstratingbrisk antegrade flow through the left external and common iliac veins and into the inferior vena cava without evidence of in-stent stenosis. Reflux was noted into collateral branches, likely due to volume of contrastinjection. The sheath was removed, and hemostasis was achieved with manual compression. Sterile dressing was applied. The patient tolerated the procedure well and was transferred to the holding area in stablecondition. There were no immediate complications associated with the procedure. Impression: Left ilio cavogram with brisk antegrade flow without evidence ofin-stent stenosis. I, Dr. Yuliet Muro, was present and performed/supervised the entire procedure. Moderate sedation on this adult patient was ordered by me, administered intravenously in my presence, and [facility] as an independent trained observer who was present throughout the procedure. The following parameters were monitored: oxygen saturation, heart rate, blood pressure, and response to care. Intra-service sedation start time was 08:24 and end time was 08:36 during which I was present. Total physician intra-service sedation time was 12 minutes. For detailson pre moderate sedation and post moderate sedation patient evaluation,please review the evaluation forms in [facility]. For details on monitored clinical parameters during the intra-service sedation time, please review the procedure nurse documentation in [facility]. > Interpreting Provider: Yuliet Muro MD on 01/15/2025 9:02 AM us Frandy Da Silva MD IR ORDERABLES Final Result * (ABNORMAL) PT-INR (01/15/2025 7:23 AM CDT) PT 11.3(L) 12.1 - 14.8 sec 01/15/2025 7:54 AM CDT [facility] INR 0.8(L) 0.9 - 1.1 01/15/2025 7:54 AM CDT [facility] Blood BLOOD SPECIMEN / Unknown Venipuncture / Unknown 01/15/2025 7:23 AM CDT 01/15/2025 7:32 AM CDT Narrative [facility] - 01/15/2025 7:54 AM CDT Conventional Warfarin Anticoagulant Therapy: INR Reference Range: 2.0-3.0 Intensive Warfarin Anticoagulant Therapy: INR Reference Range: 2.5-3.5 us Frandy Da Silva MD LAB - COAGULATION ORDERABLES Final Result [facility] [address] [place] [address] * (ABNORMAL) CBC W AUTO DIFFERENTIAL (01/15/2025 7:23 AM CDT) [facility] WBC 11.8(H) 4.0 - 10.7 x10E9/L 01/15/2025 7:39 AM CDT [facility] RBC Count 4.99 3.90 - 5.20 x10E12/L 01/15/2025 7:39 AM CDT [facility] Hemoglobin 15.1 11.9 - 15.8 g/dL 01/15/2025 7:39 AM CDT [facility] Hematocrit 45.7 34.8 - 46.1 % 01/15/2025 7:39 AM CDT [facility] MCV 91.6 80.0 - 98.0 fL 01/15/2025 7:39 AM CDT [facility] MCH 30.3 26.7 - 33.6 pg 01/15/2025 7:39 AM CDT [facility] MCHC 33.0 31.7 - 36.3 g/dL 01/15/2025 7:39 AM CDT [facility] RDW-CV 14.0 11.3 - 14.8 % 01/15/2025 7:39 AM CDT [facility] Platelet Count 313 150 - 420 x10E9/L 01/15/2025 7:39 AM CDT [facility] MPV 8.7 7.8 - 11.4 fL 01/15/2025 7:39 AM CDT [facility] Neutrophil % 60.8 41.0 - 74.0 % 01/15/2025 7:39 AM CDT [facility] Lymphocyte % 30.3 17.0 - 47.0 % 01/15/2025 7:39 AM CDT [facility] Monocyte % 6.9 3.0 - 11.0 % 01/15/2025 7:39 AM CDT [facility] Eosinophil % 1.4 0.0 - 7.0 % 01/15/2025 7:39 AM CDT [facility] Basophil % 0.3 0.0 - 1.6 % 01/15/2025 7:39 AM CDT [facility] Immature Granulocytes % 0.3 0.0 - 1.0 % 01/15/2025 7:39 AM CDT [facility] Neutrophil Absolute 7.19 1.60 - 7.50 x10E9/L 01/15/2025 7:39 AM CDT [facility] Lymphocyte Absolute 3.59 1.00 - 4.40 x10E9/L 01/15/2025 7:39 AM CDT [facility] Monocyte Absolute 0.82 0.15 - 1.00 x10E9/L 01/15/2025 7:39 AM CDT [facility] Eosinophil Absolute 0.16 0.00 - 0.60 x10E9/L 01/15/2025 7:39 AM CDT [facility] Basophil Absolute 0.04 0.00 - 0.13 x10E9/L 01/15/2025 7:39 AM CDT [facility] Blood BLOOD SPECIMEN / Unknown Venipuncture / Unknown 01/15/2025 7:23 AM CDT 01/15/2025 7:32 AM CDT us Frandy Da Silva MD LAB - HEMATOLOGY ORDERABLES F inal Result Performing Organization Address City/State/[facility] Co de Phone Number [facility] [address] [place] [address] * (ABNORMAL) BASIC METABOLIC PANEL (CALCIUM TOTAL) (01/15/2025 7:23 AM CDT) Glucose 89 70 - 99 mg/dL 01/15/2025 7:54 AM CDT [facility] Sodium 138 136 - 145 mmol/L 01/15/2025 7:54 AM CDT [facility] Potassium 4.0 3.5 - 5.1 mmol/L 01/15/2025 7:54 AM CDT [facility] Chloride 106 98 - 107 mmol/L 01/15/2025 7:54 AM CDT [facility] CO2 25 22 - 29 mmol/L 01/15/2025 7:54 AM CDT [facility] Calcium 9.5 8.4 - 10.4 mg/dL 01/15/2025 7:54 AM CDT [facility] Anion Gap 7 6 - 16 mmol/L 01/15/2025 7:54 AM CDT [facility] BUN 12 5.3 - 18.7 mg/dL 01/15/2025 7:54 AM CDT [facility] Creatinine 0.82 0.57 - 1.11 mg/dL 01/15/2025 7:54 AM CDT [facility] eGFR by CKD-EPI 88(L) >=90 mL/min/1.7 3 m2 01/15/2025 7:54 AM CDT [facility] Blood BLOOD SPECIMEN / Unknown Venipuncture / Unknown 01/15/2025 7:23 AM CDT 01/15/2025 7:32 AM CDT Frandy Da Silva MD LAB - CHEMISTRY ORDERABLES Fi nal Result [facility] [address] [place] [address] * HCG BLOOD QUALITATIVE (01/15/2025 7:23 AM CDT) HCG Qual Serum Negative Negative 01/15/2025 7:48 AM CDT [facility] Blood BLOOD SPECIMEN / Unknown Venipuncture / Unknown 01/15/2025 7:23 AM CDT 01/15/2025 7:32 AM CDT Narrative [facility] - 01/15/2025 7:48 AM CDT Specimens containing human anti-mouse antibodies may exhibit false positive or false negative results. If qualitative interpretation is inconsistent with clinical evaluation, consider confirmation by an alternative hCG method. Frandy Da Silva MD LAB - CHEMISTRY ORDERABLES Fi nal Result Performing Organization Address City/[facility] Co de Phone Number [facility] [address] [place] [address] from Last 3 Months Insurance [facility] Care Teams Manager Sterile Processing Relationship Specialty Start Date End Date Jadyn Romero PA-C [address] [place] [address] [address] [place] [address] PCP - General Physician Drug Abuse Worker 05/05/21
--- OUTSIDE RECORDS SUMMARY | 2025-02-23 08:58 | XMS_ITS | Encounter Summary ---
Author Organization [facility] Address [address] [place] [address] Care Team Providers Care Cabin Worker Name Role Phone Jadyn Romero Primary Care Provider +1- [phone] Reason for Referral * Consultation (Routine) - Pending Review Specialty Diagnoses / Procedures Referred By Rico wilcox Referred To Contact Physical Therapy Diagnoses Neck pain Numbness and tingling of right arm Jadyn Romero PA [address] [place] [address] Phone: tel: fax: External Order Referral ID Status Reason Start Date Expiration Date Visits Requested Visits Authorized [id number] Pending Review Specialty Services Required 02/23/2025 03/25/2026 24 24 Question Answer PTRFR PT Evaluate and Treat Therapy options discussed with patient? Yes Location provided for therapy services is: Patient requested/Patient preferred Please select the performing region: External Order [[id number]] # of visits: 24 Comments PT Eval and Treat 2-3 times/week for 4-6 weeks Dx: right ulnar nerve irritation/with numbness to the 4-5 fingers. Suspect cervical neck cause as symptoms are triggered with neck movement. Reason for Visit * Reason Comments numbness and tingling to right hand edema and pain to right elbow Ongoing fo r about a week. Pain can go up to right shoulder. 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 Gender Identity Female 05/18/2024 10:24 AM CDT Sexual Orientation Not on file 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 Not on file Not on f ile Not on file documented as of this encounter Last Filed Vital Signs Vital Sign Reading Time Taken Comments Blood Pressure 118/80 02/23/2025 7:05 AM CDT Pulse 76 02/23/2025 7:05 AM CDT Temperature - - Respiratory Rate - - Oxygen Saturation 99% 02/23/2025 7:05 AM CDT Inhaled Oxygen Concentration - - Weight 117.8 kg (259 lb 12.8 oz) 02/23/2025 7:05 AM CDT Height - - Body Mass Index 36.23 12/16/2024 8:21 AM CDT documented in this encounter Functional Status * Audit-C Score Answer Date of Assessment Author 0 02/23/2025 7:04 AM CDT Betsy Fortune LPN * Question Answer Date of Assessment Author Q1: How often do you have a drink containing alcohol? Never 02/23/2025 7:04 AM CDT Betsy Fortune LPN Q2: How many drinks containing alcohol do you have on a typical day when you are drinking? Patient does not drink 02/23/2025 7:04 AM CDT Betsy Fortune LPN Q3: How often do you have six or more drinks on one occasion? Never 02/23/2025 7:04 AM CDT Betsy Fortune LPN documented as of this encounter Miscellaneous Notes * Assessment & Plan Note - Betsy Fortune LPN - 02/23/2025 7:06 AM CDT Associated Problem(s): Obesity (BMI 30.0-34.9) Discussed the patient's BMI. The BMI is above average. BMI management plan is completed. BMI Follow-up includes: nutrition counseling, exercise counseling and education provided. * Assessment & Plan Note - Betsy Fortune LPN - 02/23/2025 7:06 AM CDT Associated Problem(s): BMI 36.0-36.9,adult Discussed the patient's BMI. The BMI is above average. BMI management plan is completed. BMI Follow-up includes: nutrition counseling, exercise counseling and education provided. documented in this encounter Plan of Treatment Scheduled Orders Name Type Priority Associated Diagnoses Orde r Schedule XR Spine Cervical Complete 4 Or 5 Vw Imaging Schedule Routine, Read Routine (OP Routine) Neck pain Numbness and tingling of right arm Expected: 02/23/2025, Expires: 02/23/2026 Scheduled Referrals Name Type Priority Associated Diagnoses Order Schedule Ambulatory referral order to Physical Therapy - Outpatient Referral Routine Neck pain Numbness and tingling of right arm Expected: 03/09/2025 (Approximate), Expires: 02/23/2026 documented as of this encounter Visit Diagnoses Diagnosis BMI 36.0-36.9,adult- Primary Obesity (BMI 30.0-34.9) Neck pain Cervicalgia Numbness and tingling of right arm documented in this encounter Care Teams Cabin Worker Relationship Specialty Start Date End Date Jadyn Romero PA [address] [address] PCP - General Internal Medicine 12/14/18 documented as of this encounter
== END ==
LOC: EXPTRAD 08:53
PROVIDERS: PCP Physician Assistant; Visit Provider Physician Assistant
DX: R20.0 Anesthesia of skin (principal); R20.2 Paresthesia of skin; M54.2 Cervicalgia
CPT/HCPCS: 72050